=== PATIENT | female | born 1980 | race Caucasian/White ===

== ENCOUNTER 2020-03-16 22:03 | Emergency (ER) | payer OTHER ==
[~2020-03-16] VITALS: Ht 157.5 cm; Wt 63.5 kg
[2020-03-16 22:11] VITALS: Ht 157.5 cm; Wt 63.5 kg
[2020-03-17 00:11] VITALS: BP 125/38
== END 2020-03-17 00:11 | disposition home or self-care (01) ==
LOC: ED 22:03
DX: T78.40XA Allergy, unspecified, initial encounter (principal); J45.909 Unspecified asthma, uncomplicated; X58.XXXA Exposure to other specified factors, initial encounter
CPT/HCPCS: J2930; J3490; J7613